=== PATIENT | male | born 1960 | race African-American/Black ===

== ENCOUNTER 2020-09-03 00:48 | Outpatient (CLI) | payer OTHER, SELFPAY ==
[2020-09-03 18:38] LABS: SARS-CoV-2 RNA PCR Negative
== END 2020-09-03 00:49 | disposition home or self-care (01) ==
LOC: ANHCOVIDDT 00:48
PROVIDERS: PCP Internal Medicine; Visit Provider Internal Medicine Gastroenterology
DX: Z01.812 Encounter for preprocedural laboratory examination (principal); Z20.828 Contact with and (suspected) exposure to other viral communicable diseases
CPT/HCPCS: 87635; C9803; U0003

== ENCOUNTER 2020-09-05 00:51 | Day surgery (SDC) | payer OTHER, SELFPAY ==
[2020-08-28 13:58] VITALS: BMI 30.2
[2020-09-05 07:34] VITALS: BP 146/103; PULSE 108; RESP 20; TEMP 36.4; O2SAT 98
[2020-09-05] MEDS: LACTATED RINGERS 1,000 ML 150 ML IV CONT (07:43)
--- NOTE | 2020-09-05 07:48 | WPDANESEPPF ---
Anes - Initial Pre Proc Eval Procedure: Operation Date: 09/05/20 08:30 Proposed Procedures p Screening Colonoscopy - Johan Melissa MD Date/Time: 09/05/20 07:48 Surgeon: Johan Melissa MD Pre Op Diagnosis: Neoplasm Screening Patient Data Age: 60 Gender: M Height: 6 ft 2 in Weight: 104.1 kg Last Vital Signs Temp 97.6 F 09/05/20 07:34 Pulse 108 H 09/05/20 07:34 Resp 20 09/05/20 07:34 BP 146/103 H 09/05/20 07:34 Pulse Ox 98 09/05/20 07:34 Allergies Allergy/AdvReac Type Severity Reaction Status Date / Time No Known Allergies Verified 09/05/20 07:33 Home Medications Medication Instructions Recorded Confirmed Type citalopram 40 mg tablet 20 mg PO DAILY 01/09/20 08/28/20 History clonazepam 0.5 mg tablet 0.5 mg PO BID PRN tablet 01/09/20 08/28/20 History losartan 50 mg tablet 50 mg PO DAILY 01/09/20 08/28/20 History buspirone 15 mg tablet 15 mg PO BID 01/18/20 08/28/20 History furosemide 20 mg tablet 20 mg PO QAM #30 tablet 08/20/20 08/28/20 Rx Patient hx anesthesia problems: none Family hx anesthesia problems: none PMFSH Past Medical History Medical History Alcoholism in recovery Depression Erectile dysfunction Hyperkalemia Hypertension Severe anxiety with panic Family History Family History Mother Patient's mother is in good health Sibling Patient's sister is in good health Patient's brother is in good health Father Hypertension Lung cancer Social History Social History (Updated 01/18/20 @ 07:33 by Ela Gamboa CMA) Smoking status: Never smoker Alcohol intake: current Drinks per week: 5 Living arrangements: with family Gender identity (if verbalized by the patient): Male Spiritual care concerns: No Anes - Eval Final PreProcedure Day of Procedure 09/05/20 07:48 Patient weight: overweight Heart: regular rate and rhythm Lungs: clear to auscultation Airway: Mallampati scale class II Neurological: alert and oriented Last oral intake: >/= 8 hours ASA classification: III Emergent: no Anesthetic plan: proceed Anesthesia type and monitoring: general GIVS and standard monitoring Informed Consent: The patient's anesthetic plan and its attendant risks and benefits were discussed with the patient/family/POA. Questions were solicited and answers provided to the satisfaction of the patient/family/POA.
--- NOTE | 2020-09-05 07:50 | P.HP_ITS ---
History of Present Illness History of Present Illness Consent: Risks, benefits, and alternatives have been discussed and questions answered. Patient agrees to proceed with procedure. Chief complaint: Neoplasm Screening Narrative: John Baca is a 60 year old male referred for screening colonoscopy. Review of Systems Review of Systems: All systems reviewed & are unremarkable except as noted in HPI and below PMFSH Past Medical History Medical History Alcoholism in recovery Depression Erectile dysfunction Hyperkalemia Hypertension Severe anxiety with panic Family History Family History Mother Patient's mother is in good health Sibling Patient's sister is in good health Patient's brother is in good health Father Hypertension Lung cancer Social History Social History (Updated 01/18/20 @ 07:33 by Ela Gamboa [facility]) Smoking status: Never smoker Alcohol intake: current Drinks per week: 5 Living arrangements: with family Gender identity (if verbalized by the patient): Male Spiritual care concerns: No Meds Home Medications and Allergies Home Medications Medication Instructions Recorded Confirmed Type citalopram 40 mg tablet 20 mg PO DAILY 01/09/20 08/28/20 History clonazepam 0.5 mg tablet 0.5 mg PO BID PRN tablet 01/09/20 08/28/20 History losartan 50 mg tablet 50 mg PO DAILY 01/09/20 08/28/20 History buspirone 15 mg tablet 15 mg PO BID 01/18/20 08/28/20 History furosemide 20 mg tablet 20 mg PO QAM #30 tablet 08/20/20 08/28/20 Rx Allergies Allergy/AdvReac Type Severity Reaction Status Date / Time No Known Allergies Verified 09/05/20 07:33 Vital Signs Vital Signs - 24 hr 09/05/20 07:34 Temperature 36.4 C Pulse Rate 108 H Respiratory Rate 20 Blood Pressure 146/103 H Pulse Oximetry 98 Exam Resp: Auscultation: clear to auscultation bilaterally Cardio: Rate: regular rate Rhythm: regular rhythm GI: GI Palp: Yes Soft to palpation and No Tenderness to palpation present (GI) Assessment and Plan Assessment and plan (1) Colon cancer screening: Code(s): Z12.11 - Encounter for screening for malignant neoplasm of colon Status: Acute Assessment and Plan: Colonoscopy with possible biopsy or polypectomy or cautery or injection of substances.
[2020-09-05 08:31] VITALS: BP 119/81; PULSE 53; RESP 20; O2SAT 97
[2020-09-05 08:41] VITALS: BP 109/76; PULSE 93; RESP 26; O2SAT 99
[2020-09-05 08:51] VITALS: BP 121/80; PULSE 98; RESP 26; O2SAT 99
== END 2020-09-05 09:05 | disposition home or self-care (01) ==
PROVIDERS: PCP Internal Medicine; Visit Provider Internal Medicine Gastroenterology
PROC: 0DJD8ZZ Inspection of Lower Intestinal Tract, Via Natural or Artificial Opening Endoscopic (ICD-10-PCS; CPT 45378; principal; 2020-09-05 08:30)
DX: Z12.11 Encounter for screening for malignant neoplasm of colon (principal); K57.30 Diverticulosis of large intestine without perforation or abscess without bleeding; I10 Essential (primary) hypertension; F41.8 Other specified anxiety disorders; F10.21 Alcohol dependence, in remission
CPT/HCPCS: 45378; J2704; J7120

== ENCOUNTER 2020-12-01 00:53 | Emergency (ER) | payer OTHER, SELFPAY ==
--- NOTE | ~2020-12-01 | XR_ITS ---
EXAMINATION: XR chest 1V portable INDICATION: Chest pain TECHNIQUE: Portable AP chest at 0137 hours COMPARISON: 06/04/2010 FINDINGS: The lungs are free of acute opacities. There is no pleural effusion or pneumothorax. The ca rdiomediastinal silhouette is normal. The visualized bones and soft tissues are unremarkable. IMPRESSION: 1. No acute cardiopulmonary abnormality. Reviewed, dictated and finalized at location A. LLOGRAPHIC TECHNICIAN
[2020-12-01 00:53] VITALS: BP 152/97; PULSE 107; RESP 18; O2SAT 100
--- NOTE | 2020-12-01 01:25 | ED.GENADULT ---
HPI - General Adult General Chief complaint: Alcohol Stated complaint: ETOH/ anxiety Source: RN notes reviewed History of Present Illness HPI narrative: Patient presents to emergency department from home via EMS for alcohol intoxication. Patient states he was drinking partha this evening. States he drinks on a regular basis states his called EMS this evening secondary to his alcohol use. Patient states that he has been nauseous for the past several days with some emesis. He also notes midsternal chest pain that is been constant for the past 2 days denies any fevers or chills abdominal pain, diarrhea or any other symptoms of concern Related Data Home Medications Medication Instructions Recorded Confirmed citalopram 40 mg tablet 20 mg PO DAILY 01/09/20 10/17/20 clonazepam 0.5 mg tablet 0.5 mg PO BID PRN tablet 01/09/20 10/17/20 buspirone 15 mg tablet 15 mg PO BID 01/18/20 10/17/20 chlordiazepoxide HCl 25 mg capsule 25 mg PO TID cap 10/17/20 10/17/20 Allergies Allergy/AdvReac Type Severity Reaction Status Date / Time No Known Allergies Verified 09/05/20 07:33 Review of Systems Review of Systems: Narrative: Gen.: Denies fevers or chills Eyes: Denies eye pain or visual change ENT: Denies congestion Respiratory: Denies shortness of breath or cough CV: Reports midsternal chest pain GI: Denies abdominal pain or diarrhea. Reports nausea vomiting denies burning, urgency, frequency or hematuria Musculoskeletal: Denies back pain or muscle pain Neuro: Denies numbness, tingling, weakness or focal weakness Skin: Denies rash Except as documented, all other systems reviewed and negative [facility] Past Medical History Medical History Alcoholism in recovery Depression Erectile dysfunction Hyperkalemia Hypertension Severe anxiety with panic Family History Family History Mother Patient's mother is in good health Sibling Patient's sister is in good health Patient's brother is in good health Father Hypertension Lung cancer Social History Social History Smoking status: Never smoker Alcohol intake: former Drinks per week: 5 Gender identity (if verbalized by the patient): Male Spiritual care concerns: No Exam Narrative: Exam Narrative: APPEARANCE: No acute distress, nontoxic, resting in bed EYES: EOMI HEENT: Normocephalic, atraumatic, OMM RESPIRATORY: No respiratory distress Clear to auscultation bilaterally with no rhonchi wheezing or rales. CARDIOVASCULAR: Regular rate and rhythm without murmurs rubs or gallops. ABDOMINAL: Soft, nontender, nondistended, no rebound or guarding MUSCULOSKELETAl: Moves all extremities. No clubbing, cyanosis or edema. NEURO: Awake and alert. Following commands, speech normal, no focal deficits SKIN:: Warm, dry. No rashes lesions or abrasions PSYCHIATRIC: Normal affect/mood, Course Course Emergency Course: Patient states chest pain is resolved following GI cocktail Able to drink in ED with no emesis able to get up and ambulate with no difficulty. Patient's is present and will take the patient home Discussed with patient results of workup and diagnosis. Discussed need for follow-up with primary care, proper use of medication, and reasons to return to the emergency department. Patient understands and agrees to current treatment plan Vital Signs Vital signs: Vital Signs Pulse Rate 107 H 12/01/20 00:53 Respiratory Rate 18 12/01/20 00:53 Blood Pressure 152/97 H 12/01/20 00:53 Pulse Oximetry 100 12/01/20 00:53 Temperature 97.5 F L 12/01/20 01:35 Pulse Rate 76 12/01/20 04:04 Respiratory Rate 18 12/01/20 04:04 Blood Pressure 132/91 H 12/01/20 05:06 Pulse Oximetry 98 12/01/20 04:04 Medical Decision Making MDM Narrative Medical decision making narrative: Patient's EKGs a
[2020-12-01 01:34] LABS: Basophils Absolute Auto 0.1 K/mm3 (0.0-0.1); Basophils Percent Auto 1.2 % (0.2-1.2); Eosinophils Percent Auto 0.3 % (0-4.4); Hematocrit 42.1 % (42.0-52.0); Hemoglobin 14.9 g/dL (14.0-18.0); Immature Granulocyte Absolute 0.02 K/mm3 (0.00-0.031); Immature Granulocyte Percent A 0.3 % (0-0.5); Lymphocytes Absolute Auto 2.16 K/mm3 (0.9-3.2); Lymphocytes Percent Auto 32.9 % (18.3-44.2); Mean Corpuscular HGB Conc 35.4 g/dl (32-36); Mean Corpuscular Hemoglobin 33.3 pg (26-34); Mean Platelet Volume 10.2 fl (7.4-10.4); Monocytes Absolute Auto 0.5 K/mm3 (0.1-0.6); Monocytes Percent Auto 8.2 % (2.6-8.5); Neutrophils Absolute Auto 3.8 K/mm3 (1.3-6.7); Neutrophils Percent Auto 57.1 % (45.5-73.1); Platelet Count Result 324 k/mm3 (150-375); Red Blood Count 4.48 M/mm3 (4.6-6.20); Red Cell Distribution Width 12.7 % (11.5-14.5); White Blood Count 6.6 K/mm3 (4.5-10.0)
[2020-12-01] MEDS: THIAMINE HCL 200 MG/2 ML VIAL 100 MG IV PUSH (01:34)
[2020-12-01] MEDS: SODIUM CHLORIDE 0.9% IV 1,000 ML 999 ML IV CONT (01:34)
[2020-12-01] MEDS: PANTOPRAZOLE SODIUM IV 40 MG VIAL IV PUSH (01:34)
[2020-12-01 01:35] VITALS: BP 135/82; PULSE 87; RESP 14; TEMP 36.4; O2SAT 99
[2020-12-01 01:39] LABS: INR 0.9; Prothrombin Time 12.7 Seconds (11.1-14.7)
[2020-12-01 01:40] LABS: Lipase 162 U/L (23-300); Partial Thromboplastin Time 23.8 SECONDS (22.3-36.8)
[2020-12-01 01:41] LABS: Alanine Aminotransferase 111 U/L (4-50); Albumin Level 4.4 g/dL (3.5-5.1); Alkaline Phosphatase 70 U/L (38-126); Anion Gap 15 mmol/L (8-16); Aspartate Amino Transferase 98 U/L (17-59); Bilirubin,Total 0.8 mg/dL (0.2-1.3); Blood Urea Nitrogen 8 mg/dL (9-20); Calcium 9.3 mg/dL (8.4-10.2); Carbon Dioxide 24 mmol/L (22-30); Chloride 102 mmol/L (98-107); Estimated CRCL calculation 88 ml/min; Estimated Glomerular Filt Rate > 60; Glucose 109 mg/dL (75-110); Potassium 4.2 mmol/L (3.4-5.0); Sodium 141 mmol/L (137-145)
[2020-12-01 01:53] LABS: Troponin I < 0.012 ng/mL (0.000-0.034)
[2020-12-01 02:49] LABS: Ethanol 296 mg/dL (<10)
[2020-12-01 03:04] VITALS: BP 122/81; PULSE 86; RESP 14; O2SAT 99
[2020-12-01 04:04] VITALS: BP 127/80; PULSE 76; RESP 18; O2SAT 98
[2020-12-01 04:42] LABS: Troponin I < 0.012 ng/mL (0.000-0.034)
[2020-12-01 05:06] VITALS: BP 132/91
--- NOTE | 2020-12-01 05:10 | PC.NURSE ---
pt given water per md verbal orders to PO challenge pt. pt states he feels nauseated after drinking, no emesis. md notified.
--- NOTE | 2020-12-01 05:29 | PC.NURSE ---
pt ambulated w/ no difficulty. notified.
--- NOTE | 2020-12-01 05:31 | PC.NURSE ---
this rn called pts to let her know pt is being discharged. she states she will come pick pt up.
[2020-12-01 06:29] VITALS: BP 127/77; PULSE 72; RESP 16; O2SAT 99
--- NOTE | 2020-12-01 11:00 | ECG_ITS ---
Measurements Intervals [place] Rate: 92 P: 61 CO: 144 QRS: 56 QRSD: 98 T: 55 QT: 384 QTc: 477 Interpretive Statements SINUS RHYTHM NORMAL ECG Electronically Signed On 12-01-2020 11:21:59 [employer] by Matt Mcmahon D.O.
== END 2020-12-01 06:32 | disposition home or self-care (01) ==
PROVIDERS: Emergency Provider Emergency Medicine; PCP Internal Medicine
DX: F10.229 Alcohol dependence with intoxication, unspecified (principal); Y90.8 Blood alcohol level of 240 mg/100 ml or more; K21.9 Gastro-esophageal reflux disease without esophagitis; F32.9 Major depressive disorder, single episode, unspecified; I10 Essential (primary) hypertension; F41.0 Panic disorder [episodic paroxysmal anxiety]; Z79.899 Other long term (current) drug therapy
CPT/HCPCS: 36415; 71045; 80053; 80307; 83690; 84484; 85025; 85610; 85730; 93005; 96361; 96374; 96375; 99284; A9270; C9113; J3411; J7030